=== PATIENT | female | born 1980 | race Caucasian/White ===

== ENCOUNTER → 2017-07-08 | Outpatient (CLI) | payer OTHER ==
[~2017-07-08] MED LIST: FIORICET 50-321 EACH PO; IMITREX 50 MG T50 MG PO; NEURONTIN 300300 M1 PO; NORTRIPTYLINE H10 M1 PO
== END ==
LOC: M.CT 13:10
DX: N13.0 Hydronephrosis with ureteropelvic junction obstruction (principal); K40.90 Unilateral inguinal hernia, without obstruction or gangrene, not specified as recurrent; M54.5 Low back pain; R31.9 Hematuria, unspecified

== ENCOUNTER → 2020-06-25 | Outpatient (CLI) | payer OTHER | LOC: M.CT 10:57 | PROVIDERS: ATTEND Nurse Practitioner Family | DX: R10.33 Periumbilical pain (principal) ==